=== PATIENT | female | born 1940 | race Caucasian/White ===

== ENCOUNTER 2023-06-22 09:01 | Emergency (ER) | payer OTHER ==
[~2023-06-22] VITALS: Ht 162.6 cm; Wt 53.1 kg
[2023-06-22 09:03] VITALS: TEMP 98.3
[2023-06-22 09:28] LABS: BASOPHILS # (AUTO) 0.1 K/uL (0.0-0.2); BASOPHILS % (AUTO) 1.5 % (0.0-2.0); EOSINOPHILS # (AUTO) 0.2 K/uL (0.0-0.7); EOSINOPHILS % (AUTO) 2.3 % (0.0-6.0); HEMATOCRIT 38 % (33-45); HEMOGLOBIN 12.3 g/dL (11.5-14.8); LYMPHOCYTES % (AUTO) 12.9 % (20.0-44.0); MEAN CORPUSCULAR HEMOGLOBIN 29 PG (26.0-33.0); MEAN CORPUSCULAR HGB CONC 32 g/dl (31.0-36.0); MEAN CORPUSCULAR VOLUME 90 fL (82-100); MONOCYTES # (AUTO) 0.5 K/uL (0.1-1.30); MONOCYTES % (AUTO) 6.4 % (2.0-12.0); NEUTROPHILS # (AUTO) 5.9 K/uL (1.8-8.9); NEUTROPHILS % (AUTO) 76.9 % (43.0-81.0); PLATELET COUNT (AUTO) 265 K/uL (150-450); RED BLOOD CELL COUNT(AUTO) 4.27 MIL/uL (4.0-5.2); RED CELL DISTRIBUTION WIDTH 14.3 % (11.5-15.0); WHITE BLOOD COUNT (AUTO) 7.6 K/uL (4.3-11.0)
[2023-06-22 09:42] LABS: CALCIUM, SERUM 9.7 mg/dL (8.5-10.1); CARBON DIOXIDE 26 mmol/L (21-32); CHLORIDE 101 mmol/L (98-107); CREATININE 1.3 mg/dL (0.6-1.3); GLUCOSE 149 mg/dL (74-106); POTASSIUM 5.1 mmol/L (3.5-5.1); SODIUM SERUM 136 mmol/L (136-145); UREA NITROGEN, BLOOD 38 mg/dL (7-18)
[2023-06-22 09:52] LABS: ALANINE AMINOTRANSFERASE 18 U/L (12-78); ALBUMIN 3.4 g/dL (3.4-5.0); ALKALINE PHOSPHATASE 72 U/L (46-116); ASPARTATE AMINOTRANSFERASE 20 U/L (15-37); BILIRUBIN,DIRECT 0.1 mg/dL (0.0-0.2); BILIRUBIN,TOTAL 0.3 mg/dL (0.2-1.0); NT-PRO BNP 1881 pg/mL (0-125); TOTAL PROTEIN, SERUM 7.8 g/dL (6.4-8.2)
[2023-06-22] MEDS ORDERED: FUROSEMIDE 40 MG/4 ML VIAL ONE (10:56)
[2023-06-22] MEDS ORDERED: hydrALAZINE HCL IV 20 MG VIAL ONE (10:57)
[2023-06-22] MEDS: hydrALAZINE HCL IV 20 MG VIAL IV ONE (10:58)
[2023-06-22] MEDS: FUROSEMIDE 40 MG/4 ML VIAL IV ONE (10:59)
[2023-06-22 12:15] VITALS: BP 162/69; O2SAT 98
== END 2023-06-22 12:23 | disposition short-term general hospital (02) ==
LOC: ER 09:07
DX: I16.0 Hypertensive urgency (principal); I11.0 Hypertensive heart disease with heart failure; I50.9 Heart failure, unspecified; R06.02 Shortness of breath; R07.89 Other chest pain; I10 Essential (primary) hypertension; E11.9 Type 2 diabetes mellitus without complications; Z20.822 Contact with and (suspected) exposure to COVID-19; Z88.1 Allergy status to other antibiotic agents
CPT/HCPCS: 36415; 71045-TC; 80048-TC; 80076-TC; 83880; 84484-TC; 85025-TC; J0360; J1940

== ENCOUNTER 2024-05-04 06:43 | Inpatient (IN) | payer OTHER ==
[~2024-05-04] VITALS: Ht 162.6 cm; Wt 53.1 kg
[2024-05-04] VITALS (48 sets, daily range): BP systolic 99–180; BP diastolic 27–134; TEMP 97.8–97.9; O2SAT 89–99
[2024-05-04] MEDS ORDERED: ONDANSETRON HCL/PF 4 MG/2 ML VIAL ONE (07:46)
[2024-05-04] MEDS: IV NS 0.9% 1,000 ML BAG IV ONE ×2 (07:58→09:01)
[2024-05-04] MEDS: ONDANSETRON HCL/PF 4 MG/2 ML VIAL IVP ONE (07:59)
[2024-05-04 08:09] LABS: BASOPHILS % (AUTO) 0.4 % (0.0-2.0); EOSINOPHILS % (AUTO) 0.2 % (0.0-6.0); HEMATOCRIT 30 % (33-45); HEMOGLOBIN 9.6 g/dL (11.5-14.8); LYMPHOCYTES # (AUTO) 1.5 K/uL (0.8-4.8); LYMPHOCYTES % (AUTO) 11.2 % (20.0-44.0); MEAN CORPUSCULAR HEMOGLOBIN 29 PG (26.0-33.0); MEAN CORPUSCULAR HGB CONC 33 g/dl (31.0-36.0); MEAN CORPUSCULAR VOLUME 90 fL (82-100); MONOCYTES # (AUTO) 1.4 K/uL (0.1-1.30); MONOCYTES % (AUTO) 11.2 % (2.0-12.0); PLATELET COUNT (AUTO) 173 K/uL (150-450); RED BLOOD CELL COUNT(AUTO) 3.27 MIL/uL (4.0-5.2); RED CELL DISTRIBUTION WIDTH 14.4 % (11.5-15.0)
[2024-05-04 08:16] LABS: CALCIUM, SERUM 8.9 mg/dL (8.5-10.1); CREATININE 2.1 mg/dL (0.6-1.3); POTASSIUM 5.5 mmol/L (3.5-5.1)
[2024-05-04 08:22] LABS: ALBUMIN 2.9 g/dL (3.4-5.0); BILIRUBIN,DIRECT 0.2 mg/dL (0.0-0.2); BILIRUBIN,TOTAL 0.5 mg/dL (0.2-1.0); TOTAL PROTEIN, SERUM 7.4 g/dL (6.4-8.2)
[2024-05-04 08:26] LABS: INR 1.13 (0.91-1.10); PARTIAL THROMBOPLASTIN TIME 32.8 SEC (24.3-34.3); PROTHROMBIN TIME 11.9 SECS (9.2-11.1)
[2024-05-04] MEDS ORDERED: CALCIUM CHLORIDE 1,000 MG/10 ML DISP.SYRIN ONE (09:15)
[2024-05-04] MEDS ORDERED: SODIUM BICARBONATE SYR 50 MEQ/50 ML DISP.SYRIN ONE (09:15)
[2024-05-04] MEDS ORDERED: SODIUM ZIRCONIUM CYCLOSILICATE 10 GM POWD.PACK ONE (09:16)
[2024-05-04] MEDS ORDERED: NS 0.9% IV PRN (09:30)
[2024-05-04] MEDS ORDERED: ISOPROTERENOL HCL IV PRN (09:30)
[2024-05-04] MEDS: CALCIUM CHLORIDE 1,000 MG/10 ML DISP.SYRIN IV ONE (09:33)
[2024-05-04] MEDS: SODIUM BICARBONATE SYR 50 MEQ/50 ML DISP.SYRIN IV ONE (09:34)
[2024-05-04] MEDS: SODIUM ZIRCONIUM CYCLOSILICATE 10 GM POWD.PACK PO ONE (09:35)
[2024-05-04] MEDS ORDERED: Z GUARD REMEDY 4 OZ OINT TP PRN (10:00)
[2024-05-04] MEDS ORDERED: NOREPINEPHRINE 32 MG in IV NS 0.9% 218 ML IV PRN (10:00)
[2024-05-04] MEDS ORDERED: ONDANSETRON HCL/PF 4 MG/2 ML VIAL IVP PRN (10:00)
[2024-05-04] MEDS ORDERED: MAGNESIUM HYDROXIDE 30 ML UDC PO PRN (10:00)
[2024-05-04] MEDS ORDERED: MAG HYDROX/AL HYDROX/SIMETH 30 ML UDC PO PRN (10:00)
[2024-05-04] MEDS: NOREPINEPHRINE 32 MG in IV NS 0.9% 218 ML IV PRN (12:14)
[2024-05-04] MEDS: NOREPINEPHRINE 8 MG in IV D5W 250ML IV PRN (14:47)
[2024-05-04 15:43] LABS: CALCIUM, SERUM 9.1 mg/dL (8.5-10.1); POTASSIUM 5.4 mmol/L (3.5-5.1)
[2024-05-04] MEDS ORDERED: GABA-532 PO (16:08)
[2024-05-04] MEDS ORDERED: CLOP75TA15 PO (16:08)
[2024-05-04] MEDS ORDERED: LACT10SO3 PO (16:08)
[2024-05-04] MEDS ORDERED: TRAZ-257 PO (16:08)
[2024-05-04] MEDS ORDERED: HYDR-4076 PO ×2 (16:08)
[2024-05-04] MEDS ORDERED: PANT40TA49 PO (16:08)
[2024-05-04] MEDS ORDERED: ATOR40TA PO (16:08)
[2024-05-04 16:27] LABS: APPEARANCE,URINE SLIGHTLY CLOUDY (CLEAR); BILIRUBIN,URINE NEGATIVE (NEGATIVE); BLOOD, URINE NEGATIVE Ery/uL (NEGATIVE); COLOR,URINE DARK YELLOW (YELLOW); KETONES,URINE TRACE mg/dL (NEGATIVE); LEUKOCYTE ESTERASE ,URINE NEGATIVE (NEGATIVE); NITRITE, URINE NEGATIVE (NEGATIVE); PROTEIN,URINE 2+ mg/dl (NEGATIVE); UGLUCOSE NEGATIVE (NEGATIVE); UROBILINOGEN,URINE 0.2 EU/dL (0.2)
[2024-05-04 17:27] LABS: ADD URINE CULTURE NO; BACTERIA,URINE 1+ /HPF (None Seen); RBC,URINE 0-2 /HPF (0-2)
[2024-05-04] MEDS: SODIUM ZIRCONIUM CYCLOSILICATE 5 GM POWD.PACK PO ONE (19:18)
[2024-05-04] MEDS: TRAZODONE 50 MG TABLET PO SCH (21:46)
[2024-05-05] VITALS (99 sets, daily range): BP systolic 100–176; BP diastolic 24–118; TEMP 97.5–98.4; O2SAT 88–99
[2024-05-05] MEDS: ACETAMINOPHEN 325 MG TABLET PO PRN (00:49)
[2024-05-05 05:10] LABS: BASOPHILS # (AUTO) 0.1 K/uL (0.0-0.2); BASOPHILS % (AUTO) 0.5 % (0.0-2.0); EOSINOPHILS # (AUTO) 0.1 K/uL (0.0-0.7); EOSINOPHILS % (AUTO) 0.9 % (0.0-6.0); HEMATOCRIT 29 % (33-45); HEMOGLOBIN 9.4 g/dL (11.5-14.8); LYMPHOCYTES % (AUTO) 8.1 % (20.0-44.0); MEAN CORPUSCULAR HEMOGLOBIN 29 PG (26.0-33.0); MEAN CORPUSCULAR HGB CONC 32 g/dl (31.0-36.0); MEAN CORPUSCULAR VOLUME 90 fL (82-100); MONOCYTES # (AUTO) 0.9 K/uL (0.1-1.30); MONOCYTES % (AUTO) 7.4 % (2.0-12.0); NEUTROPHILS # (AUTO) 10.2 K/uL (1.8-8.9); NEUTROPHILS % (AUTO) 83.1 % (43.0-81.0); PLATELET COUNT (AUTO) 176 K/uL (150-450); RED BLOOD CELL COUNT(AUTO) 3.24 MIL/uL (4.0-5.2); RED CELL DISTRIBUTION WIDTH 14.3 % (11.5-15.0); WHITE BLOOD COUNT (AUTO) 12.3 K/uL (4.3-11.0)
[2024-05-05 05:36] LABS: ALBUMIN 2.4 g/dL (3.4-5.0); BILIRUBIN,TOTAL 0.4 mg/dL (0.2-1.0); CALCIUM, SERUM 8.9 mg/dL (8.5-10.1); MAGNESIUM 2.1 mg/dL (1.8-2.4); PHOSPHORUS 4.8 mg/dL (2.5-4.9); POTASSIUM 4.8 mmol/L (3.5-5.1); TOTAL PROTEIN, SERUM 6.6 g/dL (6.4-8.2)
[2024-05-05] MEDS: CLOPIDOGREL BISULFATE 75 MG TABLET PO SCH (09:52)
[2024-05-05] MEDS: ATORVASTATIN 40 MG TABLET PO SCH (09:52)
[2024-05-05] MEDS: PANTOPRAZOLE 40 MG TABLET.DR PO SCH (09:52)
[2024-05-05] MEDS: POLYETHYLENE GLYCOL 3350 17 GM POWD.PACK PO SCH (17:20)
[2024-05-06] VITALS (29 sets, daily range): BP systolic 114–161; BP diastolic 33–72; TEMP 98–98.4; O2SAT 90–100
[2024-05-06 04:47] LABS: BASOPHILS # (AUTO) 0.1 K/uL (0.0-0.2); BASOPHILS % (AUTO) 0.6 % (0.0-2.0); EOSINOPHILS # (AUTO) 0.2 K/uL (0.0-0.7); EOSINOPHILS % (AUTO) 1.6 % (0.0-6.0); HEMATOCRIT 29 % (33-45); HEMOGLOBIN 9.2 g/dL (11.5-14.8); LYMPHOCYTES # (AUTO) 1.3 K/uL (0.8-4.8); LYMPHOCYTES % (AUTO) 8.8 % (20.0-44.0); MEAN CORPUSCULAR HEMOGLOBIN 29 PG (26.0-33.0); MEAN CORPUSCULAR HGB CONC 32 g/dl (31.0-36.0); MEAN CORPUSCULAR VOLUME 90 fL (82-100); MONOCYTES # (AUTO) 1.4 K/uL (0.1-1.30); MONOCYTES % (AUTO) 9.6 % (2.0-12.0); NEUTROPHILS # (AUTO) 11.4 K/uL (1.8-8.9); NEUTROPHILS % (AUTO) 79.4 % (43.0-81.0); PLATELET COUNT (AUTO) 186 K/uL (150-450); RED BLOOD CELL COUNT(AUTO) 3.24 MIL/uL (4.0-5.2); RED CELL DISTRIBUTION WIDTH 14.3 % (11.5-15.0); WHITE BLOOD COUNT (AUTO) 14.3 K/uL (4.3-11.0)
[2024-05-06 04:52] LABS: ALBUMIN 2.4 g/dL (3.4-5.0); BILIRUBIN,TOTAL 0.4 mg/dL (0.2-1.0); CALCIUM, SERUM 8.6 mg/dL (8.5-10.1); CREATININE 1.6 mg/dL (0.6-1.3); PHOSPHORUS 3.1 mg/dL (2.5-4.9); POTASSIUM 4.8 mmol/L (3.5-5.1); TOTAL PROTEIN, SERUM 6.6 g/dL (6.4-8.2)
[2024-05-07 11:06] LABS: PTH, INTACT 26 pg/mL (15-65)
[2024-05-11 08:10] LABS: *SPE A/G RATIO 0.8 (0.7-1.7); *SPE ALBUMIN 2.6 g/dL (2.9-4.4); *SPE ALPHA-1-GLOBULIN 0.4 g/dL (0.0-0.4); *SPE ALPHA-2-GLOBULIN 0.9 g/dL (0.4-1.0); *SPE BETA GLOBULIN 0.8 g/dL (0.7-1.3); *SPE GLOBULIN, TOTAL 3.2 g/dL (2.2-3.9); *SPE M-SPIKE Not Observed g/dL (Not Observed); *SPE PROTEIN TOTAL 5.8 g/dL (6.0-8.5); *SPEGAMMA GLOBULIN 1.1 g/dL (0.4-1.8)
== END 2024-05-06 20:41 | disposition short-term general hospital (02) | DRG 308 ==
LOC: ER 06:45 → ICU 11:08
PROVIDERS: ADMIT Nurse Practitioner Acute Care; ATTEND Nurse Practitioner Acute Care
PROC: 05HB33Z Insertion of Infusion Device into Right Basilic Vein, Percutaneous Approach (ICD-10-PCS; principal; 2024-05-04)
DX: I49.5 Sick sinus syndrome (principal); I50.33 Acute on chronic diastolic (congestive) heart failure; N17.0 Acute kidney failure with tubular necrosis; R57.0 Cardiogenic shock; I50.22 Chronic systolic (congestive) heart failure; E87.1 Hypo-osmolality and hyponatremia; E44.0 Moderate protein-calorie malnutrition; I13.0 Hypertensive heart and chronic kidney disease with heart failure and stage 1 through stage 4 chronic kidney disease, or unspecified chronic kidney disease; C78.7 Secondary malignant neoplasm of liver and intrahepatic bile duct; C18.9 Malignant neoplasm of colon, unspecified; Z66 Do not resuscitate; E87.5 Hyperkalemia; E88.09 Other disorders of plasma-protein metabolism, not elsewhere classified; Z87.440 Personal history of urinary (tract) infections; N18.9 Chronic kidney disease, unspecified; E78.5 Hyperlipidemia, unspecified; M89.8X9 Other specified disorders of bone, unspecified site; E11.22 Type 2 diabetes mellitus with diabetic chronic kidney disease; D64.9 Anemia, unspecified; I35.0 Nonrheumatic aortic (valve) stenosis; Z53.29 Procedure and treatment not carried out because of patient's decision for other reasons; D72.829 Elevated white blood cell count, unspecified; R80.9 Proteinuria, unspecified; Z53.8 Procedure and treatment not carried out for other reasons
CPT/HCPCS: 36410; 36415; 70450-TC; 71045-TC; 76770-TC; 80048-TC; 80053-TC; 80076-TC; 81001; 82550-TC; 83735-TC; 83970; 84100-TC; 84155; 84165; 84443-TC; 85025-TC; 85730-TC; 93307-TC; A4223; G0378; J2405; J3490; J7030; J7050; J7060